=== PATIENT | male | born 1980 | race Caucasian/White ===

== ENCOUNTER 2018-04-04 12:09 | Emergency (ER) | payer OTHER ==
[~2018-04-04] VITALS: Ht 175.3 cm; Wt 98.0 kg
[~2018-04-04 12:09] MED LIST: ACET-1256 PO; FLUO20CA35 PO; NAPR-1169 PO; RISP1TAB68 PO
[2018-04-04 12:24] VITALS: TEMP 37; Ht 175.3 cm; Wt 98.0 kg
[2018-04-04 13:33] LABS: BASO % 1.5 %; BASO ABS # 0.08 K/uL (0-0.2); EOS % 7.8 %; EOS ABS # 0.41 K/uL (0-0.5); HEMATOCRIT 41.5 % (42-52); HEMOGLOBIN 14.4 g/dL (14.0-18.0); LYMPH % 31.7 %; LYMPH ABS # 1.66 K/uL (1.2-3.4); MEAN CELL VOLUME 88.5 fL (80-100); MEAN CORPUSCULAR HEMOGLOBIN 30.7 pg (25-34); MEAN CORPUSCULAR HGB CONC 34.7 g/dl (32-36); MEAN PLATELET VOLUME 9.5 fL (7.4-10.4); MONO % 5.9 %; MONO ABS # 0.31 K/uL (0.11-0.59); NEUT % 53.1 %; NEUT ABS # 2.77 K/uL (1.4-6.5); PLATELET COUNT 270 K/uL (130-400); RED CELL DISTRIBUTION WIDTH CV 13.8 % (11.5-14.5); RED CELL DISTRIBUTION WIDTH SD 44.7 fL (36.4-46.3); WHITE BLOOD COUNT 5.23 K/uL (4.8-10.8)
[2018-04-04 14:01] LABS: ALBUMIN 3.9 gm/dl (3.4-5.0); CREATININE 0.88 mg/dl (0.60-1.40); TOTAL PROTEIN 7.3 gm/dl (6.4-8.2)
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
[2018-04-04 16:04] VITALS: BP 106/60; PULSE 98; O2SAT 98
== END 2018-04-04 16:06 | disposition home or self-care (01) ==
LOC: C.EDB 12:10
DX: F39 Unspecified mood [affective] disorder (principal); F32.9 Major depressive disorder, single episode, unspecified; F41.9 Anxiety disorder, unspecified; I48.91 Unspecified atrial fibrillation; Z86.73 Personal history of transient ischemic attack (TIA), and cerebral infarction without residual deficits